=== PATIENT | male | born 1960 | race Caucasian/White ===

== ENCOUNTER 2019-01-09 00:45 | Inpatient (IN) | payer MEDICAID ==
[2019-01-09] VITALS (7 sets, daily range): BP systolic 91–128; BP diastolic 58–98
[~2019-01-09] VITALS: Ht 172.7 cm; Wt 110.2 kg
[2019-01-09 01:34] LABS: BASOPHILS % (AUTO) 0.3 % (0-1); EOSINOPHILS # (AUTO) 0.8 X10'3 (0-0.9); EOSINOPHILS % (AUTO) 7.7 % (0-6); HEMATOCRIT 45.2 % (42.0-52.0); HEMOGLOBIN 15.6 g/dl (14.0-17.9); LYMPHOCYTES # (AUTO) 2.8 X10'3 (1.1-4.8); LYMPHOCYTES % (AUTO) 26.3 % (21-51); MEAN CORPUSCULAR HEMOGLOBIN 30.9 PG (27.0-31.0); MEAN CORPUSCULAR HGB CONC 34.6 g/dL (33.0-36.5); MEAN CORPUSCULAR VOLUME 89.4 FL (78-98); MEAN PLATELET VOLUME 9.8 FL (7.4-10.4); MONOCYTES # (AUTO) 0.7 X10'3 (0-0.9); MONOCYTES % (AUTO) 6.7 % (2-12); NEUTROPHILS # (AUTO) 6.2 X10'3 (1.8-7.7); PLATELET COUNT 237 X10'3 (140-440); RED BLOOD COUNT 5.06 X10'6 (4.70-6.10); RED CELL DISTRIBUTION WIDTH 13.7 % (11.5-14.5); WHITE BLOOD COUNT 10.5 X10'3 (4.5-11.0)
[2019-01-09 01:42] LABS: PARTIAL THROMBOPLASTIN TIME 25 SECONDS (22-32)
[2019-01-09 01:45] LABS: ALANINE AMINOTRANSFERASE 68 U/L (12-78); ALBUMIN 3.1 G/DL (3.4-5.0); ALBUMIN/GLOBULIN RATIO 0.7 (1.1-1.5); ALKALINE PHOSPHATASE 78 IU/L (46-116); ANION GAP 7 (8-16); ASPARTATE AMINO TRANSFERASE 46 U/L (10-37); BLOOD UREA NITROGEN 30 MG/DL (7-18); BUN/CREATININE RATIO 13.5 (5.4-32.0); CALCIUM 7.8 MG/DL (8.5-10.1); CHLORIDE 101 MMOL/L (99-107); CREATININE 2.22 MG/DL (0.60-1.10); GLUCOSE 251 MG/DL (70-104); POTASSIUM 3.4 MMOL/L (3.5-5.1); SODIUM 138 MMOL/L (135-145); TOTAL CARBON DIOXIDE 30.2 MMOL/L (24-32); TOTAL PROTEIN 7.3 G/DL (6.4-8.2); eGFR 31 ML/MIN
[2019-01-09] MEDS ORDERED: nitroGLYCERIN 0.4mg/hour patch TD ONE (02:05)
[2019-01-09] MEDS ORDERED: BUME1TAB8 PO (02:24)
[2019-01-09] MEDS ORDERED: CHLO50TA PO (02:24)
[2019-01-09] MEDS ORDERED: CLON0.1T20 PO (02:24)
[2019-01-09] MEDS ORDERED: POTA10CA44 PO (02:24)
[2019-01-09] MEDS ORDERED: AMLO2.5T2 PO (02:24)
[2019-01-09] MEDS ORDERED: CARV-50 PO (02:24)
[2019-01-09] MEDS ORDERED: ATOR40TA PO (02:24)
[2019-01-09] MEDS ORDERED: AMIO200T61 PO (02:24)
[2019-01-09] MEDS ORDERED: GLIP10TA11 PO (02:24)
--- NOTE | 2019-01-09 02:42 | NUR ---
PT BECAME VERBALLY AGRESSIVE, YELLING AT STAFF AND DEMANDING TO HAVE FOOD, PT WAS INFORMED MULTIPLY TIMES BY MYSELF AND THE ER MD THAT HE NEEDED TO WAIT FOR THE HOSPITALIST BEFORE HE IS ALLOWED TO EAT. PT CONTINUED TO HAVE VERBAL OUTBURST INCLUDING USE THE "FUCK" WORD. PT TOLD HIS BEHAVIOR IS NOT ACCEPTABLE IN THE HOSPITAL. PT THEN REFUSED NTG PATCH, I INFORMED HIM OF THE BENEFITS AND POTENTIAL CONSEQUENCES OF REFUSING BUT HE CONTINUED. TO REFUSE TREATMENTS. MD STEVENS AWARE.
[2019-01-09] MEDS ORDERED: potassium CL 10mEq/100ml bag 100 ML IV PRN ×2 (02:55)
[2019-01-09] MEDS ORDERED: MESSAGE TO PHARMACY PO ONE (02:55)
[2019-01-09] MEDS ORDERED: docusate sod 100mg capsule PO PRN (02:55)
[2019-01-09] MEDS ORDERED: mag hydrox/Alum hydrox/simeth 30ml oral suspension PO PRN (02:55)
[2019-01-09] MEDS ORDERED: ondansetron/PF 4mg/2ml inj IV PRN (02:55)
[2019-01-09] MEDS ORDERED: glucagon, human recombinant 1mg kit SUBCUT PRN (02:55)
[2019-01-09] MEDS ORDERED: acetaminophen 325mg tablet PO PRN (02:55)
[2019-01-09] MEDS ORDERED: heparin 10,000 units/1 ML INJ IV ONE (02:55)
[2019-01-09] MEDS ORDERED: dextrose 50%-water 50ml dispensing syringe IV PRN ×2 (02:55)
[2019-01-09] MEDS ORDERED: potassium Cl 20 mEq SR tablet PO PRN (02:55)
[2019-01-09] MEDS ORDERED: magnesium 2GM in 50ml NS 50 ML IV PRN (02:55)
[2019-01-09] MEDS ORDERED: dextrose ORAL solution 15 GM/59 ML bottle PO PRN ×2 (02:55)
[2019-01-09] MEDS ORDERED: magnesium 4gm in 100ml NS 100 ML IV PRN (02:55)
[2019-01-09 03:08] LABS: D-DIMER 0.36 MG/L FEU (0-0.50)
[2019-01-09 03:15] LABS: HEMOGLOBIN A1C 10.1 % (4.5-6.2)
[2019-01-09] MEDS: heparin 25,000 UNIT/250ml bag 250 ML IV SCH ×2 (03:31→15:36)
--- NOTE | 2019-01-09 03:39 | NUR ---
PT MEDICATIONS TAKEN TO PHARMACY.
--- NOTE | 2019-01-09 03:40 | NUR ---
Patient in room U 3023. I have received report from Tyesha MELLO (HERBERT) via phone and had the opportunity to ask questions and assume patient care. Addendum: 01/09/19 at 0631 by Conor Peña RN report from Alexandro ARROYO)
--- NOTE | 2019-01-09 06:52 | NUR ---
Problems reprioritized. Patient report given,Shwetha MELLO questions answered & plan of care reviewed with . bedside reported completed. heparin drip rate assessed no changes.no sign of bleeding. bed alarm on .pt asleep.
[2019-01-09] MEDS ORDERED: bumetanide 1mg tablet PO PRN (08:00)
[2019-01-09] MEDS: amiodarone 200mg tablet PO SCH (08:21)
[2019-01-09] MEDS: atorvastatin 20mg tablet PO SCH (08:21)
[2019-01-09] MEDS: carvedilol 6.25mg tablet PO SCH ×2 (08:23→20:50)
[2019-01-09] MEDS: cloNIDine 0.1 mg tablet PO SCH ×2 (08:23→20:50)
[2019-01-09] MEDS: furosemide 10 MG/1 ML 10ml inj IV SCH (08:23)
[2019-01-09] MEDS: amLODIPine 5mg tablet PO SCH (08:24)
[2019-01-09] MEDS: K and/or MAG REPLACEMENT MC SCH (09:25)
[2019-01-09] MEDS: heparin 10,000 units/1 ML INJ IV PRN ×2 (09:41→15:31)
[2019-01-09] MEDS: potassium Cl 20 mEq SR tablet PO PRN ×3 (09:45→18:48)
[2019-01-09] MEDS: chlorthalidone 25mg tablet PO SCH (10:18)
[2019-01-09] MEDS: insulin Lispro (HumaLOG) vial - multi-dose SQ SCH ×3 (10:32→18:53)
[2019-01-09 15:04] LABS: PARTIAL THROMBOPLASTIN TIME 39 SECONDS (22-32)
--- NOTE | 2019-01-09 16:25 | NUR ---
DM consult: Patient with A1c 10.1. Attempted visit with pt at bedside however pt sleeping and did not wake with verbal cues. Written DM education with referral to outpatient DM class and RD contact information left at patient's bedside. Pt currently on heart healthy CHO controlled diet documented with 100% PO intake meeting nutrient needs. Per RN pt requesting snacks between meals, d/w dietary to send double protein TID for satiety. LBM 01/08. No edema or wounds. Will continue to follow. Addendum: 01/09/19 at [address] Amended: Links added.
[2019-01-09] MEDS: HYDROcodone/acetaminophen 5mg/325mg tablet PO PRN (20:51)
[2019-01-09] MEDS: insulin glargine (Lantus) pen - multi-dose SQ SCH (20:56)
[2019-01-10] MEDS: HYDROcodone/acetaminophen 5mg/325mg tablet PO PRN ×2 (02:14→10:15)
[2019-01-10 03:00] VITALS: BP 91/65
[2019-01-10 06:00] VITALS: BP 99/78
--- NOTE | 2019-01-10 06:16 | NUR ---
Problems reprioritized. Patient report given, questions answered & plan of care reviewed with Maria De Jesus MELLO.
[2019-01-10] MEDS: K and/or MAG REPLACEMENT MC SCH (08:00)
--- NOTE | 2019-01-10 08:18 | NUR ---
DM Consult: addressed see prior RD note. Addendum: 01/10/19 at [address] Amended: Links added.
[2019-01-10] MEDS: insulin Lispro (HumaLOG) vial - multi-dose SQ SCH ×3 (08:37→21:36)
[2019-01-10] MEDS: furosemide 10 MG/1 ML 10ml inj IV SCH (08:42)
[2019-01-10] MEDS: cloNIDine 0.1 mg tablet PO SCH ×2 (09:31→21:21)
[2019-01-10] MEDS: amiodarone 200mg tablet PO SCH (09:31)
[2019-01-10] MEDS: chlorthalidone 25mg tablet PO SCH (09:31)
[2019-01-10] MEDS: carvedilol 6.25mg tablet PO SCH ×2 (09:31→21:21)
[2019-01-10] MEDS: atorvastatin 20mg tablet PO SCH (09:32)
[2019-01-10] MEDS: amLODIPine 5mg tablet PO SCH (09:32)
[2019-01-10 09:54] LABS: BASOPHILS # (AUTO) 0.1 X10'3 (0-0.2); BASOPHILS % (AUTO) 1.4 % (0-1); EOSINOPHILS # (AUTO) 0.7 X10'3 (0-0.9); EOSINOPHILS % (AUTO) 11.3 % (0-6); HEMATOCRIT 45.1 % (42.0-52.0); HEMOGLOBIN 15.1 g/dl (14.0-17.9); LYMPHOCYTES # (AUTO) 1.8 X10'3 (1.1-4.8); LYMPHOCYTES % (AUTO) 28.3 % (21-51); MEAN CORPUSCULAR HEMOGLOBIN 30.9 PG (27.0-31.0); MEAN CORPUSCULAR HGB CONC 33.5 g/dL (33.0-36.5); MEAN PLATELET VOLUME 10.1 FL (7.4-10.4); MONOCYTES # (AUTO) 0.5 X10'3 (0-0.9); MONOCYTES % (AUTO) 8.5 % (2-12); NEUTROPHILS # (AUTO) 3.2 X10'3 (1.8-7.7); NEUTROPHILS % (AUTO) 50.5 % (42-75); PLATELET COUNT 191 X10'3 (140-440); RED CELL DISTRIBUTION WIDTH 14.1 % (11.5-14.5); WHITE BLOOD COUNT 6.4 X10'3 (4.5-11.0)
[2019-01-10 10:10] LABS: ALANINE AMINOTRANSFERASE 62 U/L (12-78); ALBUMIN/GLOBULIN RATIO 0.7 (1.1-1.5); ALKALINE PHOSPHATASE 87 IU/L (46-116); ANION GAP 7 (8-16); ASPARTATE AMINO TRANSFERASE 26 U/L (10-37); BILIRUBIN,TOTAL 0.8 MG/DL (0.1-1.0); BLOOD UREA NITROGEN 41 MG/DL (7-18); BUN/CREATININE RATIO 16.4 (5.4-32.0); CALCIUM 8.3 MG/DL (8.5-10.1); CHLORIDE 99 MMOL/L (99-107); GLUCOSE 329 MG/DL (70-104); MAGNESIUM 1.9 MG/DL (1.5-2.4); POTASSIUM 3.4 MMOL/L (3.5-5.1); SODIUM 137 MMOL/L (135-145); TOTAL CARBON DIOXIDE 30.7 MMOL/L (24-32); TOTAL PROTEIN 7.1 G/DL (6.4-8.2); eGFR 27 ML/MIN
[2019-01-10 11:00] VITALS: BP 117/88
[2019-01-10] MEDS: levalbuterol 1.25mg/0.5ml nebule IH SCH ×3 (14:57→23:37)
[2019-01-10 15:00] VITALS: BP 96/81
[2019-01-10 18:00] VITALS: BP 112/82
[2019-01-10] MEDS: potassium Cl 20 mEq SR tablet PO PRN (19:33)
[2019-01-10] MEDS: methylPREDNISolone sod succ/PF 40mg inj. IV SCH (20:00)
[2019-01-10] MEDS: insulin glargine (Lantus) pen - multi-dose SQ SCH (21:37)
[2019-01-10 23:00] VITALS: BP 116/74
[2019-01-11] MEDS: potassium Cl 20 mEq SR tablet PO PRN ×4 (00:11→20:54)
[2019-01-11 02:00] VITALS: BP 98/73
[2019-01-11] MEDS: levalbuterol 1.25mg/0.5ml nebule IH SCH ×6 (02:46→23:05)
--- NOTE | 2019-01-11 03:06 | NUR ---
Patient in room PCU 3023. I have received report from RIAZ Pretty from ortho/neuro and had the opportunity to ask questions and assume patient care.
--- NOTE | 2019-01-11 03:06 | NUR ---
Patient said "Fuck" multiple times when woken at 0000 for a second potassium dose per MD order. Patient was educated on how low potassium can cause abnormal heart rhythms and he has one more dose at 0400. Patient stated, "Fuck, Are you fucking serious? I'm trying to sleep, I don't want to be woken up for anything ok, fuck." I discussed with him the 0400 will be held.
[2019-01-11 06:00] VITALS: BP 112/73
--- NOTE | 2019-01-11 06:01 | NUR ---
[facility] Medication Administration: For this medication-pass time frame, all medication were reviewed, dispensed, administered and documented per hospital policy by Shaunna MELLO. [facility] documentation: I have reviewed and agree with all interventions, assessments performed and documented by Shaunna MELLO.
--- NOTE | 2019-01-11 06:11 | NUR ---
Problems reprioritized. Patient report given, questions answered & plan of care reviewed with RIAZ Escobar.
--- NOTE | 2019-01-11 06:33 | NUR ---
Patient in room PCU 3023. I have received report from Shaunna MELLO and Valentina MELLO and had the opportunity to ask questions and assume patient care.
[2019-01-11 07:56] LABS: BASOPHILS % (AUTO) 0.2 % (0-1); EOSINOPHILS # (AUTO) 0.9 X10'3 (0-0.9); EOSINOPHILS % (AUTO) 11.1 % (0-6); HEMATOCRIT 45.8 % (42.0-52.0); HEMOGLOBIN 15.6 g/dl (14.0-17.9); LYMPHOCYTES % (AUTO) 25.8 % (21-51); MEAN CORPUSCULAR HEMOGLOBIN 30.7 PG (27.0-31.0); MEAN CORPUSCULAR HGB CONC 34.2 g/dL (33.0-36.5); MEAN PLATELET VOLUME 9.8 FL (7.4-10.4); MONOCYTES # (AUTO) 0.6 X10'3 (0-0.9); MONOCYTES % (AUTO) 7.5 % (2-12); NEUTROPHILS # (AUTO) 4.3 X10'3 (1.8-7.7); NEUTROPHILS % (AUTO) 55.4 % (42-75); PLATELET COUNT 222 X10'3 (140-440); RED BLOOD COUNT 5.09 X10'6 (4.70-6.10); RED CELL DISTRIBUTION WIDTH 13.6 % (11.5-14.5); WHITE BLOOD COUNT 7.8 X10'3 (4.5-11.0)
[2019-01-11] MEDS: insulin Lispro (HumaLOG) vial - multi-dose SQ SCH ×4 (08:06→21:40)
[2019-01-11] MEDS: methylPREDNISolone sod succ/PF 40mg inj. IV SCH ×2 (08:08→20:00)
[2019-01-11] MEDS: furosemide 10 MG/1 ML 10ml inj IV SCH (08:08)
[2019-01-11] MEDS: atorvastatin 20mg tablet PO SCH (08:09)
[2019-01-11] MEDS: amiodarone 200mg tablet PO SCH (08:09)
[2019-01-11] MEDS: cloNIDine 0.1 mg tablet PO SCH ×2 (08:09→20:56)
[2019-01-11] MEDS: amLODIPine 5mg tablet PO SCH (08:09)
[2019-01-11] MEDS: chlorthalidone 25mg tablet PO SCH (08:09)
[2019-01-11] MEDS: carvedilol 6.25mg tablet PO SCH ×2 (08:09→20:56)
[2019-01-11 08:16] LABS: ALANINE AMINOTRANSFERASE 62 U/L (12-78); ALBUMIN/GLOBULIN RATIO 0.7 (1.1-1.5); ALKALINE PHOSPHATASE 101 IU/L (46-116); ANION GAP 7 (8-16); ASPARTATE AMINO TRANSFERASE 26 U/L (10-37); BLOOD UREA NITROGEN 41 MG/DL (7-18); BUN/CREATININE RATIO 17.2 (5.4-32.0); CALCIUM 8.3 MG/DL (8.5-10.1); CHLORIDE 99 MMOL/L (99-107); CREATININE 2.39 MG/DL (0.60-1.10); GLUCOSE 193 MG/DL (70-104); MAGNESIUM 1.8 MG/DL (1.5-2.4); POTASSIUM 3.4 MMOL/L (3.5-5.1); SODIUM 137 MMOL/L (135-145); TOTAL CARBON DIOXIDE 30.7 MMOL/L (24-32); TOTAL PROTEIN 7.3 G/DL (6.4-8.2); eGFR 28 ML/MIN
[2019-01-11] MEDS: K and/or MAG REPLACEMENT MC SCH (08:55)
--- NOTE | 2019-01-11 09:37 | NUR ---
Spoke w/ RT and d/t SOB and elevated A1C pt could benefit from labs to determine excess fluid, spoke w/ Dr. Macias and received orders for P-BNP and Lactic acid, will continue to monitor.
[2019-01-11 11:00] VITALS: BP 97/73
[2019-01-11 15:00] VITALS: BP 127/81
[2019-01-11 18:00] VITALS: BP 121/86
--- NOTE | 2019-01-11 18:10 | NUR ---
Problems reprioritized. Patient report given, questions answered & plan of care reviewed with Valentina MELLO and Shaunna MELLO.
[2019-01-11] MEDS: HYDROcodone/acetaminophen 5mg/325mg tablet PO PRN (20:56)
[2019-01-11] MEDS: heparin, porcine 5000 units/ml vial SQ SCH (20:57)
[2019-01-11] MEDS: insulin glargine (Lantus) pen - multi-dose SQ SCH (21:39)
[2019-01-11 22:00] VITALS: BP 121/56
--- NOTE | 2019-01-12 02:30 | NUR ---
Patient refused 0200 routine vital signs while the nurse's aide woke him up for it.
--- NOTE | 2019-01-12 02:30 | NUR ---
Patient in room PCU 3023. I have received report from RIAZ Escobar and had the opportunity to ask questions and assume patient care.
[2019-01-12] MEDS: HYDROcodone/acetaminophen 5mg/325mg tablet PO PRN (03:09)
--- NOTE | 2019-01-12 05:48 | NUR ---
[facility] Medication Administration: For this medication-pass time frame, all medication were reviewed, dispensed, administered and documented per hospital policy by Shaunna MELLO. [facility] documentation: I have reviewed all interventions, assessments performed and documented by Shaunna MELLO.
[2019-01-12 06:00] VITALS: BP 127/96
[2019-01-12 06:01] LABS: BASOPHILS % (AUTO) 0.2 % (0-1); EOSINOPHILS % (AUTO) 0.1 % (0-6); HEMATOCRIT 43.6 % (42.0-52.0); HEMOGLOBIN 14.8 g/dl (14.0-17.9); LYMPHOCYTES # (AUTO) 1.5 X10'3 (1.1-4.8); MEAN CORPUSCULAR HEMOGLOBIN 30.8 PG (27.0-31.0); MEAN CORPUSCULAR VOLUME 90.6 FL (78-98); MONOCYTES # (AUTO) 0.9 X10'3 (0-0.9); MONOCYTES % (AUTO) 6.3 % (2-12); NEUTROPHILS # (AUTO) 11.2 X10'3 (1.8-7.7); NEUTROPHILS % (AUTO) 82.4 % (42-75); PLATELET COUNT 229 X10'3 (140-440); RED BLOOD COUNT 4.81 X10'6 (4.70-6.10); RED CELL DISTRIBUTION WIDTH 13.6 % (11.5-14.5); WHITE BLOOD COUNT 13.6 X10'3 (4.5-11.0)
--- NOTE | 2019-01-12 06:14 | NUR ---
Problems reprioritized. Patient report given, questions answered & plan of care reviewed with Frances MELLO.
[2019-01-12 06:21] LABS: ALANINE AMINOTRANSFERASE 49 U/L (12-78); ALBUMIN/GLOBULIN RATIO 0.7 (1.1-1.5); ALKALINE PHOSPHATASE 90 IU/L (46-116); ANION GAP 9 (8-16); ASPARTATE AMINO TRANSFERASE 17 U/L (10-37); BILIRUBIN,TOTAL 0.7 MG/DL (0.1-1.0); BLOOD UREA NITROGEN 51 MG/DL (7-18); BUN/CREATININE RATIO 21.9 (5.4-32.0); CALCIUM 8.2 MG/DL (8.5-10.1); CHLORIDE 98 MMOL/L (99-107); CREATININE 2.33 MG/DL (0.60-1.10); GLUCOSE 300 MG/DL (70-104); MAGNESIUM 1.8 MG/DL (1.5-2.4); SODIUM 137 MMOL/L (135-145); TOTAL CARBON DIOXIDE 30.1 MMOL/L (24-32); TOTAL PROTEIN 7.2 G/DL (6.4-8.2); eGFR 29 ML/MIN
[2019-01-12] MEDS: levalbuterol 1.25mg/0.5ml nebule IH SCH ×2 (07:25→11:26)
[2019-01-12] MEDS: K and/or MAG REPLACEMENT MC SCH (08:00)
[2019-01-12] MEDS: methylPREDNISolone sod succ/PF 40mg inj. IV SCH (08:01)
[2019-01-12] MEDS: furosemide 10 MG/1 ML 10ml inj IV SCH (08:01)
[2019-01-12] MEDS: cloNIDine 0.1 mg tablet PO SCH (09:18)
[2019-01-12] MEDS: chlorthalidone 25mg tablet PO SCH (09:18)
[2019-01-12] MEDS: amLODIPine 5mg tablet PO SCH (09:19)
[2019-01-12] MEDS: atorvastatin 20mg tablet PO SCH (09:19)
[2019-01-12] MEDS: amiodarone 200mg tablet PO SCH (09:19)
[2019-01-12] MEDS: carvedilol 6.25mg tablet PO SCH (09:19)
[2019-01-12] MEDS: heparin, porcine 5000 units/ml vial SQ SCH (09:20)
[2019-01-12] MEDS: insulin Lispro (HumaLOG) vial - multi-dose SQ SCH ×2 (09:30→12:55)
--- NOTE | 2019-01-12 11:00 | NUR ---
Pt is disgruntled about his breakfast tray, he states he is a big man and needs more food than what was given, I explained d/t DMII and his CC/HH diet that is the tray that will come but we will work with him to get a tray that is more appetizing, we reordered a new breakfast tray that contained more food he prefers that is still low in carbs, pt states he has had enough and is calling for a ride so he can leave AMA, Dr. Macias notified and spoke w/ pt and assessed pt, she wrote orders to discharge and states [facility] and Nebulizer for home.
[2019-01-12] MEDS ORDERED: POTA10CA44 PO (11:16)
[2019-01-12] MEDS ORDERED: LEVA1.2544 IH (11:16)
--- NOTE | 2019-01-12 14:30 | NUR ---
Pt is stable for discharge per md orders, discharge instructions reviewed w/ pt and all questions answered, New medication prescription handed to pt d/t pt has to go to [facility] for [facility], Pt understands that he needs to get a new CPAP and nebulizer from the [facility], Pt home medication retrieved from pharmacy and given to pt, Tele monitor 40 returned, PIV dc'ed and clean dry dressing in place, pt wheeled down to [facility] w/ hospital staff, pt discharges from unit at 1330 w/ friend in private vehicle, all belongings w/ pt at time of discharge
== END 2019-01-12 13:20 | disposition home or self-care (01) | DRG 190 ==
LOC: ER 00:46 → ED HOLD 03:01 → EDBEDREQ 03:12 → CMPBEDREQ 04:23 → PCU 3S 04:27
PROVIDERS: ADMIT Family Medicine; ATTEND Internal Medicine
PROC: 5A09357 Assistance with Respiratory Ventilation, Less than 24 Consecutive Hours, Continuous Positive Airway Pressure (ICD-10-PCS; principal; 2019-01-10)
PROC: 5A09357 Assistance with Respiratory Ventilation, Less than 24 Consecutive Hours, Continuous Positive Airway Pressure (ICD-10-PCS; 2019-01-11)
DX: I21.A1 Myocardial infarction type 2 (principal); I50.23 Acute on chronic systolic (congestive) heart failure; N17.9 Acute kidney failure, unspecified; E11.22 Type 2 diabetes mellitus with diabetic chronic kidney disease; N18.4 Chronic kidney disease, stage 4 (severe); E66.01 Morbid (severe) obesity due to excess calories; I13.0 Hypertensive heart and chronic kidney disease with heart failure and stage 1 through stage 4 chronic kidney disease, or unspecified chronic kidney disease; I48.91 Unspecified atrial fibrillation; J44.1 Chronic obstructive pulmonary disease with (acute) exacerbation; E78.5 Hyperlipidemia, unspecified; F17.210 Nicotine dependence, cigarettes, uncomplicated; G47.33 Obstructive sleep apnea (adult) (pediatric); Z68.36 Body mass index [BMI] 36.0-36.9, adult; Z79.01 Long term (current) use of anticoagulants; Z79.84 Long term (current) use of oral hypoglycemic drugs; Z79.899 Other long term (current) drug therapy; Z91.19 Patient's noncompliance with other medical treatment and regimen; Z71.6 Tobacco abuse counseling
CPT/HCPCS: 36415; 80053; 82948; 83036; 83605; 83735; 83880; 84484; 85025; 85379; 85610; 85730; 87081; 93005; 93306; 94640; 94660; 94760; 99285; G0378; J1644; J1815; J1940; J2920; J7614

== ENCOUNTER 2019-02-03 08:33 | Emergency (ER) | payer MEDICAID ==
[~2019-02-03] VITALS: Ht 172.7 cm; Wt 106.4 kg
[~2019-02-03 08:33] MED LIST: AMIO200T61 PO; AMLO2.5T2 PO; ATOR40TA PO; BUME1TAB8 PO; CARV-50 PO; CHLO50TA PO; CLON0.1T2 PO; GLIP10TA11 PO; LEVA1.2544 IH; POTA10CA44 PO
--- NOTE | 2019-02-03 08:47 | NUR ---
PER MD, HE SAID TO HOLD OFF ON "DOING ANYTHING" UNTIL WE GET RECORDS FROM [facility] WHERE THE PATIENT LEFT AMA THIS MORNING.
--- NOTE | 2019-02-03 08:48 | NUR ---
DR LOPEZ NOTIFIED PT JUST LEFT [facility] TELE UNIT, PROVIDER WOULD LIKE TO HOLD OFF DOING LABS AND XRAY UNTIL WE GET RECORDS FROM [facility]
[2019-02-03] MEDS ORDERED: BUPIVAcaine/PF 2.5 mg/ml (0.25%) 30ml vial IJ ONE (09:20)
[2019-02-03] MEDS ORDERED: BUPIVAcaine/PF 5 mg/ml 10ml IJ ONE (09:25)
[2019-02-03] MEDS ORDERED: OXYC-145 PO (10:10)
[2019-02-03 10:19] VITALS: BP 105/76
== END 2019-02-03 10:29 | disposition home or self-care (01) ==
LOC: ER 08:34
DX: I73.00 Raynaud's syndrome without gangrene (principal); I48.20 Chronic atrial fibrillation, unspecified; I48.92 Unspecified atrial flutter; M79.645 Pain in left finger(s); I11.0 Hypertensive heart disease with heart failure; I50.9 Heart failure, unspecified; E78.00 Pure hypercholesterolemia, unspecified; E11.9 Type 2 diabetes mellitus without complications; M79.18 Myalgia, other site; F15.90 Other stimulant use, unspecified, uncomplicated; Z89.022 Acquired absence of left finger(s); Z79.899 Other long term (current) drug therapy
CPT/HCPCS: 20552; 93005; 99284; J3490

== ENCOUNTER 2019-02-05 14:04 | Emergency (ER) | payer MEDICAID ==
[~2019-02-05] VITALS: Ht 172.7 cm; Wt 106.4 kg
[~2019-02-05 14:04] MED LIST changes: +OXYC-145 PO
[2019-02-05 14:46] LABS: BASOPHILS # (AUTO) 0.1 X10'3 (0-0.2); EOSINOPHILS # (AUTO) 0.5 X10'3 (0-0.9); EOSINOPHILS % (AUTO) 7.1 % (0-6); HEMATOCRIT 45.7 % (42.0-52.0); HEMOGLOBIN 15.4 g/dl (14.0-17.9); LYMPHOCYTES # (AUTO) 1.7 X10'3 (1.1-4.8); LYMPHOCYTES % (AUTO) 22.6 % (21-51); MEAN CORPUSCULAR HEMOGLOBIN 30.3 PG (27.0-31.0); MEAN CORPUSCULAR HGB CONC 33.8 g/dL (33.0-36.5); MEAN CORPUSCULAR VOLUME 89.6 FL (78-98); MEAN PLATELET VOLUME 10.2 FL (7.4-10.4); MONOCYTES # (AUTO) 0.7 X10'3 (0-0.9); NEUTROPHILS # (AUTO) 4.4 X10'3 (1.8-7.7); NEUTROPHILS % (AUTO) 59.3 % (42-75); PLATELET COUNT 199 X10'3 (140-440); RED CELL DISTRIBUTION WIDTH 13.9 % (11.5-14.5); WHITE BLOOD COUNT 7.4 X10'3 (4.5-11.0)
[2019-02-05 15:06] LABS: ALANINE AMINOTRANSFERASE 44 U/L (12-78); ALBUMIN 3.3 G/DL (3.4-5.0); ALBUMIN/GLOBULIN RATIO 0.8 (1.1-1.5); ALKALINE PHOSPHATASE 118 IU/L (46-116); ANION GAP 9 (8-16); ASPARTATE AMINO TRANSFERASE 20 U/L (10-37); BILIRUBIN,TOTAL 0.9 MG/DL (0.1-1.0); BLOOD UREA NITROGEN 42 MG/DL (7-18); BUN/CREATININE RATIO 20.3 (5.4-32.0); CALCIUM 9.2 MG/DL (8.5-10.1); CHLORIDE 99 MMOL/L (99-107); CREATININE 2.07 MG/DL (0.60-1.10); GLUCOSE 275 MG/DL (70-104); POTASSIUM 3.5 MMOL/L (3.5-5.1); SODIUM 137 MMOL/L (135-145); TOTAL CARBON DIOXIDE 29.4 MMOL/L (24-32); TOTAL PROTEIN 7.5 G/DL (6.4-8.2); eGFR 33 ML/MIN
[2019-02-05] MEDS ORDERED: BUPIVAcaine/PF 2.5 mg/ml (0.25%) 30ml vial IJ ONE ×2 (17:40)
[2019-02-05] MEDS ORDERED: BUPIVAcaine/PF 2.5mg/ml (0.25%) 10ml vial IJ ONE ×2 (17:45)
[2019-02-05 17:59] VITALS: BP 155/73
== END 2019-02-05 22:27 | disposition home or self-care (01) ==
LOC: ER 14:04
DX: I99.8 Other disorder of circulatory system (principal); I48.91 Unspecified atrial fibrillation; I11.0 Hypertensive heart disease with heart failure; I50.9 Heart failure, unspecified; E78.00 Pure hypercholesterolemia, unspecified; E11.9 Type 2 diabetes mellitus without complications; M79.18 Myalgia, other site; F17.200 Nicotine dependence, unspecified, uncomplicated; F15.90 Other stimulant use, unspecified, uncomplicated; Z89.022 Acquired absence of left finger(s); Z79.899 Other long term (current) drug therapy
CPT/HCPCS: 20552; 36415; 71045; 80053; 84484; 85025; 93005; 99284; J3490

== ENCOUNTER 2019-02-12 09:07 | Emergency (ER) | payer MEDICAID ==
[~2019-02-12] VITALS: Ht 172.7 cm; Wt 90.0 kg
[2019-02-12 10:22] LABS: BASOPHILS # (AUTO) 0.1 X10'3 (0-0.2); BASOPHILS % (AUTO) 1.4 % (0-1); EOSINOPHILS # (AUTO) 0.5 X10'3 (0-0.9); EOSINOPHILS % (AUTO) 5.7 % (0-6); HEMATOCRIT 46.6 % (42.0-52.0); HEMOGLOBIN 15.4 g/dl (14.0-17.9); LYMPHOCYTES # (AUTO) 2.4 X10'3 (1.1-4.8); MEAN CORPUSCULAR HEMOGLOBIN 30.4 PG (27.0-31.0); MEAN PLATELET VOLUME 10.6 FL (7.4-10.4); MONOCYTES # (AUTO) 0.7 X10'3 (0-0.9); NEUTROPHILS # (AUTO) 4.8 X10'3 (1.8-7.7); NEUTROPHILS % (AUTO) 56.9 % (42-75); PLATELET COUNT 225 X10'3 (140-440); RED BLOOD COUNT 5.06 X10'6 (4.70-6.10); RED CELL DISTRIBUTION WIDTH 14.4 % (11.5-14.5); WHITE BLOOD COUNT 8.4 X10'3 (4.5-11.0)
[2019-02-12 10:41] LABS: ALANINE AMINOTRANSFERASE 31 U/L (12-78); ALBUMIN/GLOBULIN RATIO 0.8 (1.1-1.5); ALKALINE PHOSPHATASE 75 IU/L (46-116); ANION GAP 6 (8-16); ASPARTATE AMINO TRANSFERASE 14 U/L (10-37); BILIRUBIN,TOTAL 0.8 MG/DL (0.1-1.0); BLOOD UREA NITROGEN 39 MG/DL (7-18); BUN/CREATININE RATIO 14.1 (5.4-32.0); CALCIUM 8.3 MG/DL (8.5-10.1); CHLORIDE 101 MMOL/L (99-107); CREATININE 2.76 MG/DL (0.60-1.10); GLUCOSE 270 MG/DL (70-104); POTASSIUM 4.4 MMOL/L (3.5-5.1); SODIUM 139 MMOL/L (135-145); TOTAL CARBON DIOXIDE 31.6 MMOL/L (24-32); TOTAL PROTEIN 6.7 G/DL (6.4-8.2); eGFR 24 ML/MIN
[2019-02-12 10:43] LABS: LARGE PLATELETS FEW; PLATELET ESTIMATE NORMAL
--- NOTE | 2019-02-12 11:43 | NUR ---
zayda ruiz spoke with pt's pcp at the [facility]. we made an appt for the patient at 1.
[2019-02-12 11:48] VITALS: BP 90/74
== END 2019-02-12 11:51 | disposition home or self-care (01) ==
LOC: ER 09:08
DX: I73.00 Raynaud's syndrome without gangrene (principal); I48.91 Unspecified atrial fibrillation; I11.0 Hypertensive heart disease with heart failure; I50.9 Heart failure, unspecified; E78.00 Pure hypercholesterolemia, unspecified; E11.9 Type 2 diabetes mellitus without complications; G47.30 Sleep apnea, unspecified; F15.90 Other stimulant use, unspecified, uncomplicated; Z79.899 Other long term (current) drug therapy
CPT/HCPCS: 36415; 80053; 84484; 85025; 93005; 99284